=== PATIENT | female | born 1980 | race Caucasian/White ===

== ENCOUNTER 2017-10-16 11:35 | Emergency (ER) | payer OTHER ==
[2017-10-16 13:19] LABS: ABS Basophils 0.1 10^3/ul (0-0.2); ABS Eosinophils 0.1 10^3/ul (0-0.6); ABS Lymphocytes 1.6 10^3/ul (1.0-4.8); ABS Monocytes 0.5 10^3/ul (0-0.8); ABS Nucleated RBC 0 10^3/ul; Eosinophil % 1.6 % (0-6); Hematocrit 40 % (35-47); Lymphocyte % 22.2 % (25-47); Mean Corpuscular HGB Conc 35 g/dl (31-36); Mean Corpuscular Hemoglobin 31 pg (27-31); Mean Corpuscular Volume 88 fL (80-97); Mean Platelet Volume 8 um3 (7.4-10.4); Nucleated Red Blood Cells % 0; Platelet Count 366 10^3/ul (150-450); Red Blood Count 4.53 10^6/ul (4.0-5.4); Red Cell Distribution Width 12 % (10.5-15); White Blood Count 7.3 10^3/ul (3.5-10.8)
[2017-10-16 13:43] LABS: EGFR Non-African American 90.2 (>60)
--- NOTE | 2017-10-16 13:45 | RAD ---
INDICATION: Epigastric pain. COMPARISON: There are no prior studies available for comparison. TECHNIQUE: A portable view of the chest was obtained. FINDINGS: Cardiac and mediastinal contours appear to be within normal limits. The lungs are clear. No pleural effusion is seen. IMPRESSION: NO EVIDENCE FOR ACUTE DISEASE.
--- NOTE | 2017-10-16 14:25 | RAD ---
Indication: Right upper quadrant pain. Real-time sonography of the right upper quadrant was performed. Liver is normal in size. No focal lesions or intrahepatic ductal dilatation is noted. The gallbladder demonstrates no gallstones. No pericholecystic fluid or wall thickening is identified. The common duct measures 2 mm. Right kidney measures 10.4 x 3.5 x 6.1 cm. No hydronephrosis is noted. The pancreas head, neck and proximal body demonstrates no mass or pancreatic duct dilatation. Aorta and inferior vena cava are unremarkable. IMPRESSION: No evidence of cholelithiasis or biliary duct dilatation is noted.
[2017-10-16 14:49] VITALS: BP 117/75
--- NOTE | 2017-10-16 21:50 | ED ---
Rickey Wylie Thomas, scribed for Monique Buenrostro MD on 10/16/17 at 1339 . Abdominal Pain/Female - HPI Summary HPI Summary: The patient is a 37 year old female presenting to the emergency department complaining of intermittent RUQ pain for the last two months after she eats. She describes the pain as like I swallowed a brick. The pain is rated 3/10. The patient denies fever, chills, eye erythema, ear ache, chest pain, shortness of breath, abdominal pain, back pain, dysuria, hematuria, edema, rashes, bruises , headache, anxiety, and depression. - History of Current Complaint Chief Complaint: EDAbdPain Stated Complaint: ABD PAIN Time Seen by Provider: 10/16/17 12:35 Hx Obtained From: Patient Hx Last Menstrual Period: 07/27/15 Onset/Duration: Lasting Weeks - x few months, Still Present Timing: Intermittent Episode Lasting Severity Currently: Moderate Pain Intensity: 3 Pain Scale Used: 0-10 Numeric Location: Discrete At: RUQ Radiates: No Character: Other: - "like swallow brick Aggravating Factor(s): Food Alleviating Factor(s): Nothing Associated Signs and Symptoms: Positive: Other: - Abd pain; NEGATIVE: fever, chills ,eye erythema, ear ache, chest pain, shortness of breath, abdominal pain , back pain, dysuria, hematuria, edema, rashes, bruises, headache, anxiety, and depression. Allergies/Adverse Reactions: Allergies Allergy/AdvReac Type Severity Reaction Status Date / Time Nitrofurantoin Allergy Severe HEART Verified 10/16/17 11:50 [From Macrobid] RACING Home Medications: Home Medications Cholecalciferol [Vitamin D] 1,000 unit PO DAILY 10/16/17 [History Confirmed ] Magnesium [Magnesium 400 mg] 1 tab PO DAILY 10/16/17 [History Confirmed 10/16/17 ] PMH/Surg Hx/FS Hx/Imm Hx Endocrine/Hematology History: Denies: Hx Diabetes Cardiovascular History: Denies: Hx Myocardial Infarction - Surgical History Surgery Procedure, Year, and Place: D&C S/P [facility] 2001 Infectious Disease History: No Infectious Disease History: Denies: Traveled Outside the [place] in Last 30 Days - Family History Known Family History: Negative: Other - gallbladder disease - Social History Alcohol Use: Occasionally Substance Use Type: Reports: None Smoking Status (MU): Never Smoked Tobacco Review of Systems Negative: Fever, Chills Negative: Erythema Negative: Ear Ache Negative: Chest Pain Negative: Shortness Of Breath Negative: Abdominal Pain Negative: dysuria, hematuria Negative: Edema, Other - back pain Negative: Rash, Bruising Negative: Headache Negative: Anxious, Depressed All Other Systems Reviewed And Are Negative: No Physical Exam - Summary Physical Exam Summary: Appearance: Alert, conversive, nontoxic appearing Skin: Warm, dry, no mottling, no rashes, no contusions HEENT: EOMI, PERRL, slightly dry mucous membranes Neck: No masses on the neck, supple Respiratory: Clear to auscultation, breath sounds present, no rales, no rhonchi , no wheezes Cardiovascular: RRR, pulses are symmetrical in both lower and upper extremities Abdomen: Soft, mild epigastric and RUQ tenderness. Bowel Sounds: Present Musculoskeletal: No CVA tenderness, no obvious deformity, moving all extremities in a grossly normal manner Neurological: A&Ox3, CN II-XII Intact, moving all extremities symmetrically Psychiatric: Normal affect and mood Triage Information Reviewed: Yes Vital Signs On Initial Exam: Initial Vitals Temp Pulse Resp BP Pulse Ox 98.6 F 74 16 144/93 100 10/16/17 11:47 10/16/17 11:47 10/16/17 11:47 10/16/17 11:47 10/16/17 11:47 Vital Signs Reviewed: Yes Diagnostics - Vital Signs Vital Signs Temp Pulse Resp BP Pulse Ox 10/16/17 11:47 98.6 F 74 16 144/93 100 - Laboratory Lab Results: Lab Results 10/16/17 Range/Units 13:08 WBC 7.3 (3.5-10.8) 10^3/ul RBC 4.53 (4.0-5.4) 10^6/ul Hgb 14.0 (12.0-16.0) g/dl Hct 40 (35-47) % MCV 88 (80-97) fL MCH 31 (27-31) pg MCHC 35 (31-36) g/dl RDW 12 (10.5-15) % Plt Count 366 (150-450) 10^3/ul MPV 8 (7.4-10.4) um3 Neut % (Auto) 68.7 (38-83) % Lymph % (Auto) 22.2 L (25-47) % [place] % (Auto) 6.5 (1-9) % Eos % (Auto) 1.6 (0-6) % Baso % (Auto) 1.0 (0-2) % Absolute Neuts (auto) 5.0 (1.5-7.7) 10^3/ul Absolute Lymphs (auto) 1.6 (1.0-4.8) 10^3/ul Absolute Monos (auto) 0.5 (0-0.8) 10^3/ul Absolute Eos (auto) 0.1 (0-0.6) 10^3/ul Absolute Basos (auto) 0.1 (0-0.2) 10^3/ul Absolute Nucleated RBC 0 10^3/ul Nucleated RBC % 0 Result Diagrams: 10/16/17 13:08 10/16/17 13:08 Lab Statement: Any lab studies that have been ordered have been reviewed, and results considered in the medical decision making process. - Radiology CXR Xray Interpretation: No Acute Changes - No evidence for acute disease. Dr. Buenrostro has reviewed this report. Radiology Interpretation Completed By: Radiologist - Additional Comments Diagnostic Additional Comments: Gallbladder Ultrasound. Interpreted by radiologist. Impression: No evidence of cholelithiasis or biliary duct dilation is noted. Dr. Buenrostro has reviewed this report. Abdominal Pain Fem Course/Dx - Course Course Of Treatment: The patient is a 37 year old female presenting to the emergency department complaining of intermittent RUQ pain for the last two months after she eats. CXR and Ultrasound were obtained, detailed earlier in this report. The T-bilirubin was 1.3, and I reviewed with the patient that it is important to follow up with her primary care physician. - Diagnoses Provider Diagnoses: Abdominal pain Discharge - Discharge Plan Condition: Stable Disposition: HOME Patient Education Materials: Abdominal Pain (ED) Referrals: Moe Gunn MD [Primary Care Provider] - Additional Instructions: please follow up with your doctor. return if worse or any new symptoms. Take all medications as previously instructed. Take tylenol or motrin for pain. The documentation as recorded by the Rickey marques Thomas accurately reflects the service I personally performed and the decisions made by Chitra mujica Norma, MD.
== END 2017-10-16 15:01 | disposition home or self-care (01) ==
LOC: ED 11:35
DX: R10.11 Right upper quadrant pain (principal)
CPT/HCPCS: 36415; 71045; 76705; 80053; 83690; 84702; 85025; 99282